=== PATIENT | male | born 1975 | race Two or more races ===

== ENCOUNTER 2022-05-20 08:25 | Emergency (ER) | payer MEDICAID, OTHER ==
[~2022-05-20] VITALS: Ht 170.2 cm; Wt 70.0 kg
[2022-05-20 09:20] VITALS: BP 122/71
[2022-05-20] MEDS ORDERED: HYDROcodone-ACET 10/325MG TAB PO ONE (09:30)
[2022-05-20] MEDS ORDERED: IBUP800T26 PO (10:44)
[2022-05-20] MEDS ORDERED: HYDR-4902 PO (10:44)
== END 2022-05-20 10:45 | disposition home or self-care (01) ==
LOC: ER 08:25
DX: M47.816 Spondylosis without myelopathy or radiculopathy, lumbar region (principal); M25.552 Pain in left hip; M25.551 Pain in right hip; M54.42 Lumbago with sciatica, left side; M54.41 Lumbago with sciatica, right side
CPT/HCPCS: 72100; 73502